=== PATIENT | male | born 1965 | race Caucasian/White ===

== ENCOUNTER 2020-12-25 07:40 | Day surgery (SDC) | payer OTHER ==
[~2020-12-25] VITALS: Ht 190.5 cm; Wt 107.7 kg
[~2020-12-25 07:40] MED LIST: ADDERALL 15 MG15 MG PO; BUPROPION XL150 MG PO; MELOXICAM15 MG PO
[2020-12-25] MEDS ORDERED: LEVOTHYROXINE112 MC1 PO (07:55)
[2020-12-25] MEDS ORDERED: HYDROCODON-ACE1 EA10 PO (09:54)
[2020-12-25] MEDS ORDERED: DICLOFENAC SODI75 MG PO (09:54)
--- NOTE | 2020-12-25 10:10 | NUR ---
12/25/20 1010 Sabrina Berman [id number] PT TO PACU ORAL AIRWAY IN PLACE. MASK FOGGING WITH EXHALATION.
--- NOTE | 2020-12-25 11:43 | NUR ---
PT AMBULATED TO BR AND VOIDED LARGE UNMEASURED URINE. DENIES NAUSEA. REPORTS INCREASED PAIN WITH AMBULATION. IV NOTED TO BE INFILTRATED - REMOVED IMEDIATELY AND PRESSURE APPLIED.
--- NOTE | 2020-12-25 11:46 | NUR ---
LUNCH ORDERED. PT WAITING TO SEE IF PAIN MEDICATIONS WILL REDUCE HIS PAIN.
--- NOTE | 2021-01-08 10:49 | OR ---
[facility] [address], [place] [address] Signed DATE OF OPERATION: 12/25/2020 SURGEON: Robe Berman MD PREOPERATIVE DIAGNOSIS: Medial meniscus tear, degenerative joint disease, right knee. POSTOPERATIVE DIAGNOSIS: Medial meniscus tear, degenerative joint disease, right knee. PROCEDURE PERFORMED: Right knee arthroscopy with partial medial meniscectomy. LIME BURNER: None. ANESTHESIA: General. BLOOD LOSS: Minimal. BRIEF HISTORY: Yue is a 55-year-old gentleman with pain and instability in his knee. MRI was consistent with the above findings. The risks and benefits of arthroscopic debridement were discussed with him. He elected to proceed. DESCRIPTION OF PROCEDURE: Once consent was obtained, he was taken to the operating room. After adequate anesthesia, he was placed on the operating table. All downside pressure points well padded. The left leg was flexed, abducted, and externally rotated on a well-padded leg vale and the right was placed in well-padded proximal thigh leg vale with no tourniquet. The leg was then prepped and draped in the standard sterile fashion after injecting the portal sites with 0.25% Marcaine with epinephrine under alcohol prep. The standard inferolateral and superolateral portals were established and the scope was introduced into the knee. ARTHROSCOPIC FINDINGS: Moderate synovitis was noted throughout. There was clouds of cartilaginous fragments floating around the knee. These were evacuated. There was moderate synovitis in both Electronically Signed By: ROBE BERMAN MD 12/28/20 0811 Electronically Signed By: ROBE BERMAN MD 01/11/21 0820 PATIENT NAME: YUE JARQUIN OPERATIVE REPORT DATE OF : 65 REPORT #: [id number] PHYSICIAN: ROBE BERMAN MD PCP: NO PRIMARY CARE PHYSICIAN REPORT IS CONFIDENTIAL AND NOT TO BE RELEASED WITHOUT AUTHORIZATION [facility] [address], [place] [address] Signed gutters with small osteophytes. The labrum was noted to be somewhat torn, but was intact. Lateral compartment was intact. 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 The meniscus had a degenerative tear from the posterior corner extending anteriorly about half way, there were unstable flaps. DESCRIPTION OF PROCEDURE: Standard inferomedial portal was made after localization with a spinal needle. The straight and curved biters were used to trim the meniscus tear back to a stable rim. This was then smoothed and feathered w/ the shaver. The scope was withdrawn. Portals were closed with 3-0 nylon. The knee was injected with 60 mg Toradol at the end of the case. The wounds were dressed with Adaptic, ABD, and Naveed wrap. He tolerated the procedure well. All sponge, needle, and instrument counts were correct. Robe Berman MD BA/TIML /[id number] Copies: ~ Electronically Signed By: ROBE BERMAN MD 12/28/20 0811 Electronically Signed By: ROBE BERMAN MD 01/11/21 0820 PATIENT NAME: YUE JARQUIN ANU OPERATIVE REPORT DATE OF : 65 REPORT #: [id number] PHYSICIAN: ROBE BERMAN MD PCP: NO PRIMARY CARE PHYSICIAN REPORT IS CONFIDENTIAL AND NOT TO BE RELEASED WITHOUT AUTHORIZATION
== END 2020-12-25 12:15 | disposition home or self-care (01) ==
LOC: DS 07:40
PROVIDERS: ATTEND Specialist
PROC: 0SBC4ZZ Excision of Right Knee Joint, Percutaneous Endoscopic Approach (ICD-10-PCS; principal; 2020-12-25 09:30)
DX: S83.241A Other tear of medial meniscus, current injury, right knee, initial encounter (principal); E03.9 Hypothyroidism, unspecified; X58.XXXA Exposure to other specified factors, initial encounter; Z87.891 Personal history of nicotine dependence
CPT/HCPCS: 01400; J0690; J1100; J1885; J2001; J2405; J2704; J3010

== ENCOUNTER 2022-01-20 00:29 | Emergency (ER) | payer OTHER ==
[~2022-01-20] VITALS: Ht 190.5 cm; Wt 108.9 kg
[~2022-01-20 00:29] MED LIST changes: +DICLOFENAC SODI75 MG PO; +GABAPENTIN600 MG PO; +HYDROCODON-ACE1 EA10 PO; +IRON 100 PLUS1 EACH PO; +LEVOTHYROXINE112 MC1 PO; +MULTI VITAMIN1 EACH PO; +OXYCODONE HCL5 MG PO; +SENNA LAX8.6 MG PO; +XARELTO10 MG PO
--- OUTSIDE RECORDS SUMMARY | 2022-01-20 00:33 | XMS ---
PreManage Notification: VIKTORIYA JARQUIN Security Load Planner Events No recent Security Events currently on file [facility] There are no care providers on record at this time. Rosanne has no Care Guidelines for this patient. Aria VISIT COUNT (12 MO.) 1 CARMEN Mcfarlane TOTAL 1 NOTE: Visits indicate total known visits. ED/UCC VISIT TRACKING (12 MO.) 01/20/2022 00:30 CARMEN Wooten OR TYPE: Emergency COMPLAINT: - POST OP FEVER INPATIENT VISIT TRACKING (12 MO.) No inpatient visits to display in this time frame [email or web address]
== END 2022-01-20 05:52 | disposition short-term general hospital (02) ==
LOC: ED 00:29
DX: T81.41XA Infection following a procedure, superficial incisional surgical site, initial encounter (principal); Z87.891 Personal history of nicotine dependence; Z79.899 Other long term (current) drug therapy; Z20.822 Contact with and (suspected) exposure to COVID-19
CPT/HCPCS: 36415; 71045; 80053; 81001; 83605; 85025; 85610; 85730; 87502; 93971; 96361; 96365; 96366; 96375; 96376; 99284-25; A9270; C9803; J1170; J2405; J3370; J7030; J7060; U0003